=== PATIENT | male | born 1975 ===

== ENCOUNTER 2018-08-31 11:54 | Emergency (ER) | payer SELFPAY ==
[2018-08-31] MEDS ORDERED: TETANUS & DIPHTHERIA TOX,ADULT 0.5 ML VIAL ONE (12:57)
[2018-08-31] MEDS ORDERED: LIDOCAINE 1% MPF 5 ML VIAL ONE (12:57)
--- NOTE | 2018-08-31 14:11 | RAD REPORT ---
EXAM DESCRIPTION: RAD - Hand Left 3 View - 08/31/2018 1:47 pm CLINICAL HISTORY: Hand pain, laceration COMPARISON: None. FINDINGS: No fracture, dislocation or periosteal reaction noted. No foreign body or other soft tissu e abnormality. IMPRESSION: Negative left hand examination.
--- NOTE | 2018-08-31 14:31 | ER ---
Nurse's Notes [facility] Name: Eliceo Champion Age: 42 yrs Sex: Male : 1975 Arrival Date: 08/31/2018 Time: 11:58 Bed 11 Private MD: Diagnosis: Laceration without foreign body of left hand Presentation: 08/31 12:01 Presenting complaint: Patient states: left hand laceration after trying to open a sv canned good. Transition of care: patient was not received from another setting of care. Complicating Factors: There are no complicating factors for this patient. Onset of symptoms was August 31, 2018. Care prior to arrival: None. 12:01 Method Of Arrival: Ambulatory sv 12:01 Acuity: ANKITA 3 sv 14:48 Risk Assessment: Do you want to hurt yourself or someone else? Patient reports no ss desire to harm self or others. Initial Sepsis Screen: Does the patient meet any 2 criteria? No. Patient's initial sepsis screen is negative. Does the patient have a suspected source of infection? No. Patient's initial sepsis screen is negative. Triage Assessment: 12:04 General: Appears in no apparent distress. comfortable, well developed, Behavior is sv calm, cooperative, appropriate for age. Pain: Complains of pain in left hand Pain currently is 7 out of 10 on a pain scale. Pain began 30 min ago. Neuro: Level of Consciousness is awake, alert, obeys commands, Oriented to person, place, time, situation, Moves all extremities. Full function Gait is steady, Speech is normal. Respiratory: Respiratory effort is even, unlabored, Respiratory pattern is regular, symmetrical. Injury Description: Laceration sustained to inner aspect of left palm is contaminated, 2.6 to 7.5 cm long, not bleeding, was sustained 30-60 minutes ago. is bleeding a small amount. Historical: - Allergies: 12:03 PENICILLINS; sv 12:03 Iodine; sv 12:03 Sulfa (Sulfonamide Antibiotics); sv 12:03 Latex, Natural Rubber; sv 12:03 Bleach (Sodium Hypochlorite); sv 12:03 Codeine; sv - PSHx: 12:03 Knee surgery; hips; Ear Tubes; sv - Immunization history:: Adult Immunizations up to date. - Social history:: Smoking status: Patient/guardian denies using tobacco. - Ebola Screening: : Patient denies exposure to infectious person Patient denies travel to an Ebola-affected area in the 21 days before illness onset. Screenin:59 Abuse screen: Denies threats or abuse. Denies injuries from another. Nutritional ss screening: No deficits noted. Tuberculosis screening: Never had TB. Fall Risk None identified. Assessment: 12:16 General: Appears in no apparent distress. comfortable, Behavior is cooperative, Denies ss fever, feeling ill, fatigue, chills. Pain: Complains of pain in inner aspect of left palm Pain currently is 7 out of 10 on a pain scale. Quality of pain is described as burning, tender, Is continuous. Neuro: Level of Consciousness is awake, alert, obeys commands, Oriented to person, place, time, situation. Cardiovascular: Pulses are palpable in right radial artery and left radial artery. Respiratory: Airway is patent Respiratory effort is even, unlabored, Respiratory pattern is regular, symmetrical. EENT: Nares are clear Oral mucosa is moist. Derm: Skin is intact, is healthy with good turgor, Skin is dry, Skin is pink, warm \T\ dry. normal. Musculoskeletal: Circulation, motion, and sensation intact. Range of motion: intact in all extremities, Swelling absent. 12:59 Reassessment: Patient appears in no apparent distress at this time. Patient and/or ss family updated on plan of care and expected duration. Pain level reassessed. Patient is alert, oriented x 3, equal unlabored respirations, skin warm/dry/pink. awaiting XRAY. Vital Signs: 12:03 BP 140 / 95; Pulse 98; Resp 18; Temp 98.5; Pulse Ox 98% ; Weight 81.65 kg; Height 5 ft. sv 4 in. (162.56 cm); Pain 7/10; 12:03 Body Mass Index 30.90 (81.65 kg, 162.56 cm) sv ED Course: 11:58 Patient arrived in ED. tw3 12:01 Triage completed. sv 12:01 Bandage applied. sv 12:04 Arm band placed on. sv 12:19 Eliceo Piedra NP is PHCP. pm1 12:19 Jeremias Interiano MD is Attending Physician. pm1 12:44 Maria Esther Canales RN is Primary Nurse. ss 12:59 Patient has correct armband on for positive identification. Bed in low position. Call light in reach. 13:30 X-ray completed. Portable x-ray completed in exam room. Patient tolerated procedure jb2 well. 13:48 Hand Left 3 View XRAY In Process Unspecified. EDMS 14:46 Patient did not have IV access during this emergency room visit. ss 14:46 Assist provider with laceration repair on left hand that was between 2.6 to 7.5 cm ss using sutures. Set up tray. Performed by Eliceo Piedra ENGINEERING LEADER Dressed with Neosporin, Patient tolerated well. Administered Medications: 12:56 Drug: Tetanus-Diphtheria Toxoid Adult 0.5 ml {[employer]s Survey Worker: [employer]. Exp: ss 07/21/2020. Lot #: [id number]. } Route: IM; Site: right deltoid; 14:46 Follow up: Response: No adverse reaction ss 14:22 Drug: Lidocaine (1 %) 5 ml Volume: 5 ml; Route: Infiltration; Outcome: 14:30 Discharge ordered by MD. pm1 14:48 Discharged to home ambulatory. ss 14:48 Condition: good 14:48 Discharge instructions given to patient, Instructed on discharge instructions, follow up and referral plans. medication usage, Demonstrated understanding of instructions, follow-up care, medications, wound care, Prescriptions given X 1. 14:52 Patient left the ED. Signatures: Dispatcher [employer] Fabienne Ulloa, RN Jimmie Hill2 Maria Esther Canales RN RN ss Marinas, Patrick, NP ENGINEERING LEADER pm1 Anju Tripp tw3 Corrections: (The following items were deleted from the chart) 14:47 14:46 No provider procedures requiring assistance completed. ss ss
--- NOTE | 2018-08-31 14:31 | EDPHYS ---
Physician Documentation [facility] Name: Eliceo Champion Age: 42 yrs Sex: Male : 1975 Arrival Date: 08/31/2018 Time: 11:58 Bed 11 Private MD: ED Physician Jeremias Interiano HPI: 08/31 13:00 This 42 yrs old Male presents to ER via Ambulatory with complaints of Laceration To pm1 Hand. 13:00 The patient has a laceration related to: cooking, occurred at work, and there are no pm1 complicating factors. The injury was accidental. The laceration(s) is(are) located on the inner aspect of left palm. Onset: The symptoms/episode began/occurred just prior to arrival. Associated signs and symptoms: Pertinent negatives: deformity, dizziness, heavy bleeding, numbness distal to injury, suspected foreign body. The patient has not experienced similar symptoms in the past. The patient has not recently seen a physician. Patient was opening a can of beans at work and then accidentally cut his left hand on the lid that he was opening. Historical: - Allergies: 12:03 PENICILLINS; sv 12:03 Iodine; sv 12:03 Sulfa (Sulfonamide Antibiotics); sv 12:03 Latex, Natural Rubber; sv 12:03 Bleach (Sodium Hypochlorite); sv 12:03 Codeine; sv - PSHx: 12:03 Knee surgery; hips; Ear Tubes; sv - Immunization history:: Adult Immunizations up to date. - Social history:: Smoking status: Patient/guardian denies using tobacco. - Ebola Screening: : Patient denies exposure to infectious person Patient denies travel to an Ebola-affected area in the 21 days before illness onset. ROS: 13:00 Constitutional: Negative for fever, chills, and weight loss, Eyes: Negative for injury, pm1 pain, redness, and discharge, ENT: Negative for injury, pain, and discharge, Neck: Negative for injury, pain, and swelling, Cardiovascular: Negative for chest pain, palpitations, and edema, Respiratory: Negative for shortness of breath, cough, wheezing, and pleuritic chest pain, Abdomen/GI: Negative for abdominal pain, nausea, vomiting, diarrhea, and constipation, Back: Negative for injury and pain, : Negative for injury, bleeding, discharge, and swelling. 13:00 Skin: Negative for injury, rash, and discoloration, Neuro: Negative for headache, weakness, numbness, tingling, and seizure. 13:00 MS/extremity: Positive for laceration, of the inner aspect of left palm, Negative for decreased range of motion, deformity, paresthesias, swelling. Exam: 13:00 Constitutional: This is a well developed, well nourished patient who is awake, alert, pm1 and in no acute distress. Head/Face: Normocephalic, atraumatic. Eyes: Pupils equal round and reactive to light, extra-ocular motions intact. Lids and lashes normal. Conjunctiva and sclera are non-icteric and not injected. Cornea within normal limits. Periorbital areas with no swelling, redness, or edema. ENT: Nares patent. No nasal discharge, no septal abnormalities noted. Tympanic membranes are normal and external auditory canals are clear. Oropharynx with no redness, swelling, or masses, exudates, or evidence of obstruction, uvula midline. Mucous membranes moist. Neck: Trachea midline, no thyromegaly or masses palpated, and no cervical lymphadenopathy. Supple, full range of motion without nuchal rigidity, or vertebral point tenderness. No Meningismus. Chest/axilla: Normal chest wall appearance and motion. Nontender with no deformity. No lesions are appreciated. Cardiovascular: Regular rate and rhythm with a normal S1 and S2. No gallops, murmurs, or rubs. Normal PMI, no JVD. No pulse deficits. Respiratory: Lungs have equal breath sounds bilaterally, clear to auscultation and percussion. No rales, rhonchi or wheezes noted. No increased work of breathing, no retractions or nasal flaring. Back: No spinal tenderness. No costovertebral tenderness. Full range of motion. 13:00 MS/ Extremity: Pulses equal, no cyanosis. Neurovascular intact. Full, normal range of motion. 13:00 Skin: Appearance: normal except for affected area, injury, laceration(s), the wound is approximately 3 cm(s), with a depth of 1 cm(s), of the inner aspect of left palm. 13:00 Neuro: Orientation: is normal, Sensation: is normal, no obvious gross deficits, Gait: is steady, at a normal pace, without difficulty. Vital Signs: 12:03 BP 140 / 95; Pulse 98; Resp 18; Temp 98.5; Pulse Ox 98% ; Weight 81.65 kg; Height 5 ft. sv 4 in. (162.56 cm); Pain 7/10; 12:03 Body Mass Index 30.90 (81.65 kg, 162.56 cm) sv Laceration: 14:27 Wound Repair of 3cm ( 1.2in ) subcutaneous laceration to inner aspect of left palm. pm1 Linear shaped.. Distal neuro/vascular/tendon intact. Anesthesia: Local anesthetic administered with 3 mls of 1% lidocaine. Wound prep: Extensive cleansing with hibiclenz by me, Wound irrigation with saline by me, Wound explored extensively, Copious irrigation. Skin closed with 5 1-0 Prolene using simple sutures and sterile technique. Dressed with Neosporin, 4x4's. Patient tolerated well. MDM: 12:19 Patient medically screened. pm1 14:27 Data reviewed: vital signs. Data interpreted: Pulse oximetry: on room air is 98 %. pm1 Interpretation: normal. Counseling: I had a detailed discussion with the patient and/or guardian regarding: the historical points, exam findings, and any diagnostic results supporting the discharge/admit diagnosis, radiology results, the need for outpatient follow up, suture removal in 10-14 days, to return to the emergency department if symptoms worsen or persist or if there are any questions or concerns that arise at home. 08/31 12:24 Order name: Hand Left 3 View XRAY; Complete Time: 14:27 pm1 08/31 12:24 Order name: Prolene, Sutures; Complete Time: 12:44 pm1 08/31 12:24 Order name: Dressing - Wound; Complete Time: 12:44 pm1 08/31 12:24 Order name: Gloves, Sterile; Complete Time: 12:44 pm1 08/31 12:24 Order name: Setup Suture Tray; Complete Time: 12:44 pm1 Administered Medications: 12:56 Drug: Tetanus-Diphtheria Toxoid Adult 0.5 ml {Rides Attendant: [employer]. Exp: ss 07/21/2020. Lot #: [id number]. } Route: IM; Site: right deltoid; 14:46 Follow up: Response: No adverse reaction 14:22 Drug: Lidocaine (1 %) 5 ml Volume: 5 ml; Route: Infiltration; ss Disposition: 09/01 07:22 Co-signature as Attending Physician, Jeremias Interiano MD I agree with the assessment and wa plan of care. Disposition: 08/31/18 14:30 Discharged to Home. Impression: Laceration without foreign body of left hand. - Condition is Stable. - Discharge Instructions: Laceration Care, Adult. - Prescriptions for Tramadol 50 mg Oral Tablet - take 1 tablet by ORAL route every 8 hours as needed; 12 tablet. - Work release form, Medication Reconciliation Form, Thank You Letter, Antibiotic Education, Prescription Opioid Use form. - Follow up: Emergency Department; When: As needed; Reason: Worsening of condition. Follow up: Private Physician; When: 2 - 3 days; Reason: Wound Recheck, Recheck today's complaints, Continuance of care, Staple/Suture removal, Re-evaluation by your physician. - Problem is new. - Symptoms have improved. Signatures: Dispatcher [employer] EDIL Fabienne Larson RN RN Maria Esther Canales RN RN ss Eliceo Piedra, ROLL OFF DRIVER ROLL OFF DRIVER pm1 Jeremias Interiano MD MD ct Corrections: (The following items were deleted from the chart) 08/31 14:52 14:30 08/31/2018 14:30 Discharged to Home. Impression: Laceration without foreign body ss of left hand. Condition is Stable. Forms are Medication Reconciliation Form, Thank You Letter, Antibiotic Education, Prescription Opioid Use. Follow up: Emergency Department; When: As needed; Reason: Worsening of condition. Follow up: Private Physician; When: 2 - 3 days; Reason: Wound Recheck, Recheck today's complaints, Continuance of care, Staple/Suture removal, Re-evaluation by your physician. Problem is new. Symptoms have improved. pm1
== END 2018-08-31 14:52 | disposition home or self-care (01) ==
LOC: ER 11:54
PROC: 0JQK0ZZ Repair Left Hand Subcutaneous Tissue and Fascia, Open Approach (ICD-10-PCS; principal; 2018-08-31)
DX: S61.412A Laceration without foreign body of left hand, initial encounter (principal); W26.8XXA Contact with other sharp object(s), not elsewhere classified, initial encounter; Y93.G3 Activity, cooking and baking; Y92.89 Other specified places as the place of occurrence of the external cause; Y99.8 Other external cause status; Z23 Encounter for immunization; Z88.0 Allergy status to penicillin; Z88.2 Allergy status to sulfonamides; Z88.5 Allergy status to narcotic agent; Z91.040 Latex allergy status; Z91.048 Other nonmedicinal substance allergy status
CPT/HCPCS: 90714; 99284

== ENCOUNTER 2018-09-08 07:11 | Emergency (ER) | payer SELFPAY ==
--- NOTE | 2018-09-08 07:30 | ER ---
Nurse's Notes [facility] Name: Eliceo Champion Age: 43 yrs Sex: Male : 1975 Arrival Date: 09/08/2018 Time: 07:15 Bed 20 Private MD: None, None Diagnosis: Encounter for removal of sutures Presentation: 09/08 07:22 Presenting complaint: Patient states: here to have sutures removed that were placed 7 ss days ago. Transition of care: patient was not received from another setting of care. Onset of symptoms was August 2018. Risk Assessment: Do you want to hurt yourself or someone else? Patient reports no desire to harm self or others. Initial Sepsis Screen: Does the patient meet any 2 criteria? No. Patient's initial sepsis screen is negative. Does the patient have a suspected source of infection? No. Patient's initial sepsis screen is negative. Care prior to arrival: None. 07:22 Method Of Arrival: Ambulatory ss 07:22 Acuity: ANKITA 5 ss Historical: - Allergies: 07:23 Bleach (Sodium Hypochlorite); ss 07:23 Codeine; ss 07:23 Iodine; ss 07:23 Latex, Natural Rubber; ss 07:23 PENICILLINS; ss 07:23 Sulfa (Sulfonamide Antibiotics); ss - PSHx: 07:23 Knee surgery; hips; Ear Tubes; ss - Immunization history:: Adult Immunizations up to date. - Social history:: Smoking status: Patient/guardian denies using tobacco. - Ebola Screening: : Patient denies exposure to infectious person Patient denies travel to an Ebola-affected area in the 21 days before illness onset. Screenin:23 Abuse screen: Denies threats or abuse. Denies injuries from another. Nutritional bp screening: No deficits noted. Tuberculosis screening: No symptoms or risk factors identified. Fall Risk None identified. Assessment: 07:22 General: Appears in no apparent distress. comfortable, Behavior is calm, cooperative, bp appropriate for age. Pain: Denies pain. Neuro: Level of Consciousness is awake, alert, obeys commands, Oriented to person, place, time, situation, Appropriate for age. Cardiovascular: No deficits noted. Respiratory: Airway is patent Respiratory effort is even, unlabored, Respiratory pattern is regular, symmetrical. GI: No signs and/or symptoms were reported involving the gastrointestinal system. : No signs and/or symptoms were reported regarding the genitourinary system. EENT: No deficits noted. Derm: No deficits noted. Musculoskeletal: Circulation, motion, and sensation intact. Range of motion: intact in all extremities. Vital Signs: 07:21 BP 131 / 80; Pulse 92; Resp 16; Temp 98.2(TE); Pulse Ox 98% on R/A; Weight 77.11 kg; ss Height 5 ft. 4 in. (162.56 cm); Pain 0/10; 07:21 Body Mass Index 29.18 (77.11 kg, 162.56 cm) ED Course: 07:15 Patient arrived in ED. mr 07:15 None, None is Private Physician. mr 07:19 Tim Montilla, RN is Primary Nurse. bp 07:21 Arm band placed on right wrist. ss 07:23 Triage completed. ss 07:23 Patient has correct armband on for positive identification. Bed in low position. Call bp light in reach. Side rails up X2. 07:25 Everardo Irving PA is PHCP. jr8 07:25 Lino Cisneros MD is Attending Physician. jr8 07:37 No provider procedures requiring assistance completed. Patient did not have IV access ss during this emergency room visit. Administered Medications: No medications were administered Outcome: 07:29 Discharge ordered by . jr8 07:37 Discharged to home ambulatory. ss 07:37 Condition: good 07:37 Discharge instructions given to patient, family, Instructed on discharge instructions, follow up and referral plans. medication usage, Demonstrated understanding of instructions, follow-up care, medications. 07:38 Patient left the ED. Signatures: Melany Mora Shelby, RN RN Everardo Irving PA PA jr8 Tim Montilla, RN RN bp
--- NOTE | 2018-09-08 07:30 | EDPHYS ---
Physician Documentation [facility] Name: Eliceo Champion Age: 43 yrs Sex: Male : 1975 Arrival Date: 09/08/2018 Time: 07:15 Bed 20 Private MD: None, None ED Physician Lino Cisneros HPI: 09/08 07:25 This 43 yrs old Male presents to ER via Ambulatory with complaints of Suture Removal. jr8 07:25 The patient has sutures on the left hand. Previous treatment: The patient was initially jr8 treated 7 day(s) ago. Sutures/gisela progress: The patient has no c/o's. The wound is well-healing with no redness, swelling, discharge, or dehiscence reported. The patient has not experienced similar symptoms in the past. The patient has not recently seen a physician. lacerated hand on left side last week. Had sutures completed here. Back to have them removed . Historical: - Allergies: 07:23 Bleach (Sodium Hypochlorite); ss 07:23 Codeine; ss 07:23 Iodine; ss 07:23 Latex, Natural Rubber; ss 07:23 PENICILLINS; ss 07:23 Sulfa (Sulfonamide Antibiotics); ss - PSHx: 07:23 Knee surgery; hips; Ear Tubes; ss - Immunization history:: Adult Immunizations up to date. - Social history:: Smoking status: Patient/guardian denies using tobacco. - Ebola Screening: : Patient denies exposure to infectious person Patient denies travel to an Ebola-affected area in the 21 days before illness onset. ROS: 07:25 Constitutional: Negative for fever, chills, and weight loss. jr8 07:25 All other systems are negative. Exam: 07:25 Cardiovascular: Regular rate and rhythm with a normal S1 and S2. No gallops, murmurs, jr8 or rubs. Normal PMI, no JVD. No pulse deficits. Respiratory: Lungs have equal breath sounds bilaterally, clear to auscultation and percussion. No rales, rhonchi or wheezes noted. No increased work of breathing, no retractions or nasal flaring. Neuro: Awake and alert, GCS 15, oriented to person, place, time, and situation. Cranial nerves II-XII grossly intact. Motor strength 5/5 in all extremities. Sensory grossly intact. Cerebellar exam normal. Normal gait. 07:25 MS/ Extremity: Pulses equal, no cyanosis. Neurovascular intact. Full, normal range of motion. 07:25 Skin: Wound recheck: Suture laceration closure: the wound is healing well, mild dehiscence. Vital Signs: 07:21 BP 131 / 80; Pulse 92; Resp 16; Temp 98.2(TE); Pulse Ox 98% on R/A; Weight 77.11 kg; ss Height 5 ft. 4 in. (162.56 cm); Pain 0/10; 07:21 Body Mass Index 29.18 (77.11 kg, 162.56 cm) ss Procedures: 07:25 Suture/Staple removal: Removed 5 sutures, from left hand, site appears well healed, jr8 dressed with gauze bandage, Neosporin, Patient tolerated well. MDM: 07:25 Patient medically screened. jr8 07:25 Data reviewed: vital signs, nurses notes, and as a result, I will discharge patient. jr8 Data interpreted: Pulse oximetry: on room air is 98 %. Interpretation: normal. Counseling: I had a detailed discussion with the patient and/or guardian regarding: the historical points, exam findings, and any diagnostic results supporting the discharge/admit diagnosis, the need for outpatient follow up, a family practitioner, to return to the emergency department if symptoms worsen or persist or if there are any questions or concerns that arise at home. ED course: cautioned patient to be extra careful with that area for next week. Laceration was in crease of hand and has mild dehiscence of wound. Will have to secondarily heal from this point on but no infection noted and looks well otherwise . Administered Medications: No medications were administered Disposition: 08:21 Co-signature as Attending Physician, Lino Cisneros MD. rn Disposition: 09/08/18 07:29 Discharged to Home. Impression: Encounter for removal of sutures. - Condition is Stable. - Discharge Instructions: Suture Removal, Care After. - Medication Reconciliation Form, Thank You Letter, Antibiotic Education, Prescription Opioid Use form. - Follow up: Private Physician; When: As needed; Reason: Wound Recheck, Recheck today's complaints, Continuance of care, Re-evaluation by your physician. - Problem is new. - Symptoms have improved. Signatures: Cisneros, LinoMD MD fiona Shelby, RN RN ss Roszak, Josh, PA PA jr8 Corrections: (The following items were deleted from the chart) 07:38 07:29 09/08/2018 07:29 Discharged to Home. Impression: Encounter for removal of ss sutures. Condition is Stable. Forms are Medication Reconciliation Form, Thank You Letter, Antibiotic Education, Prescription Opioid Use. Follow up: Private Physician; When: As needed; Reason: Wound Recheck, Recheck today's complaints, Continuance of care, Re-evaluation by your physician. Problem is new. Symptoms have improved. jr8
== END 2018-09-08 07:38 | disposition home or self-care (01) ==
LOC: ER 07:11
DX: Z48.02 Encounter for removal of sutures (principal); Z88.0 Allergy status to penicillin; Z88.2 Allergy status to sulfonamides; Z88.5 Allergy status to narcotic agent; Z91.040 Latex allergy status; Z91.048 Other nonmedicinal substance allergy status
CPT/HCPCS: 99281

== ENCOUNTER 2018-10-07 08:35 | Emergency (ER) | payer SELFPAY ==
--- NOTE | 2018-10-07 08:57 | ER ---
Nurse's Notes [facility] Name: Eliceo Champion Age: 43 yrs Sex: Male : 1975 Arrival Date: 10/07/2018 Time: 08:37 Bed 20 Private MD: Diagnosis: Unspecified otitis externa, left ear;Other marginal perforations of tympanic membrane, left ear Presentation: 10/07 08:48 Presenting complaint: Left ear pain and drainage from ear since 0300 today. Transition hb of care: patient was not received from another setting of care. Onset of symptoms was October 07, 2018. Risk Assessment: Do you want to hurt yourself or someone else? Patient reports no desire to harm self or others. Initial Sepsis Screen: Does the patient meet any 2 criteria? No. Patient's initial sepsis screen is negative. Does the patient have a suspected source of infection? No. Patient's initial sepsis screen is negative. Care prior to arrival: Medication(s) given: naproxen at 0430. 08:48 Method Of Arrival: Ambulatory hb 08:48 Acuity: ANKITA 4 hb Triage Assessment: 08:48 General: Appears in no apparent distress. Behavior is calm, cooperative. Pain: Pain hb currently is 9 out of 10 on a pain scale. EENT: Ear canal w/ drainage noted from left ear. Neuro: Level of Consciousness is awake, alert, obeys commands, Oriented to person, place, time, situation. Cardiovascular: Capillary refill < 3 seconds Patient's skin is warm and dry. Respiratory: Airway is patent Respiratory effort is even, unlabored, Respiratory pattern is regular, symmetrical. GI: No signs and/or symptoms were reported involving the gastrointestinal system. : No signs and/or symptoms were reported regarding the genitourinary system. Derm: Skin is intact, is healthy with good turgor. Musculoskeletal: No signs and/or symptoms reported regarding the musculoskeletal system. Historical: - Allergies: 08:51 Bleach (Sodium Hypochlorite); hb 08:51 Codeine; hb 08:51 Iodine; hb 08:51 Latex, Natural Rubber; hb 08:51 PENICILLINS; hb 08:51 Sulfa (Sulfonamide Antibiotics); hb - PSHx: 08:51 Knee surgery; hips; Ear Tubes; hb - Immunization history:: Adult Immunizations up to date. - Social history:: Smoking status: Patient uses tobacco products, smokes one-half pack cigarettes per day. - Ebola Screening: : No symptoms or risks identified at this time. - Family history:: not pertinent. - Hospitalizations: : No recent hospitalization is reported. Screenin:54 Abuse screen: Denies threats or abuse. Denies injuries from another. Nutritional hb screening: No deficits noted. Tuberculosis screening: No symptoms or risk factors identified. Fall Risk None identified. Assessment: 09:02 General: see triage assessment. hb Vital Signs: 08:48 BP 123 / 85; Pulse 88; Resp 16; Temp 98; Pulse Ox 100% ; Weight 81.65 kg; Height 5 ft. hb 4 in. (162.56 cm); Pain 9/10; 08:48 Body Mass Index 30.90 (81.65 kg, 162.56 cm) hb ED Course: 08:37 Patient arrived in ED. as 08:45 Lino Cisneros MD is Attending Physician. rn 08:49 Triage completed. hb 08:54 Arm band placed on. hb 08:55 Fabienne Regan MD is Referral Physician. rn 08:56 Patient has correct armband on for positive identification. Bed in low position. Call hb light in reach. 09:02 No provider procedures requiring assistance completed. Patient did not have IV access hb during this emergency room visit. Administered Medications: No medications were administered Outcome: 08:56 Discharge ordered by . rn 09:02 Discharged to home ambulatory. hb 09:02 Condition: stable 09:02 Discharge instructions given to patient, Instructed on discharge instructions, follow up and referral plans. medication usage, Demonstrated understanding of instructions, follow-up care, medications, Prescriptions given X 2. 09:03 Patient left the ED. hb Signatures: Leslie Hoskins Roman, MD MD rn Baxter, Heather, RN RN hb
--- NOTE | 2018-10-07 08:57 | EDPHYS ---
Physician Documentation [facility] Name: Eliceo Champion Age: 43 yrs Sex: Male : 1975 Arrival Date: 10/07/2018 Time: 08:37 Bed 20 Private MD: ED Physician Lino Cisneros HPI: 10/07 08:53 This 43 yrs old Male presents to ER via Ambulatory with complaints of Ear rn Pain. 08:53 The patient presents with an injury, pain. The complaints affect the left ear. Onset: rn The symptoms/episode began/occurred yesterday. Modifying factors: The symptoms are alleviated by covering ear, the symptoms are aggravated by pulling on ears. Severity of symptoms: At their worst the symptoms were mild in the emergency department the symptoms are unchanged. The patient has not experienced similar symptoms in the past. The patient has not recently seen a physician. Denies trauma or injury.. Historical: - Allergies: 08:51 Bleach (Sodium Hypochlorite); hb 08:51 Codeine; hb 08:51 Iodine; hb 08:51 Latex, Natural Rubber; hb 08:51 PENICILLINS; hb 08:51 Sulfa (Sulfonamide Antibiotics); hb - PSHx: 08:51 Knee surgery; hips; Ear Tubes; hb - Immunization history:: Adult Immunizations up to date. - Social history:: Smoking status: Patient uses tobacco products, smokes one-half pack cigarettes per day. - Ebola Screening: : No symptoms or risks identified at this time. - Family history:: not pertinent. - Hospitalizations: : No recent hospitalization is reported. ROS: 08:53 Constitutional: Negative for fever, chills, and weight loss, ENT: + left ear pain and rn drainage Neuro: Negative for headache, weakness, numbness, tingling, and seizure. Exam: 08:53 Constitutional: This is a well developed, well nourished patient who is awake, alert, rn and in no acute distress. Head/Face: Normocephalic, atraumatic. Eyes: Pupils equal round and reactive to light, extra-ocular motions intact. Lids and lashes normal. Conjunctiva and sclera are non-icteric and not injected. Cornea within normal limits. Periorbital areas with no swelling, redness, or edema. ENT: + left TM with mild erythema, + bubbles at base, possible perforation, + pain with manipulation of ear Neuro: Awake and alert, GCS 15, oriented to person, place, time, and situation. Cranial nerves II-XII grossly intact. Motor strength 5/5 in all extremities. Sensory grossly intact. Cerebellar exam normal. Normal gait. Vital Signs: 08:48 BP 123 / 85; Pulse 88; Resp 16; Temp 98; Pulse Ox 100% ; Weight 81.65 kg; Height 5 ft. hb 4 in. (162.56 cm); Pain 9/10; 08:48 Body Mass Index 30.90 (81.65 kg, 162.56 cm) hb MDM: 08:45 Patient medically screened. rn 08:53 Differential diagnosis: otitis media, otitis externa, ruptured TM. Data reviewed: vital rn signs, nurses notes, and as a result, I will discharge patient. Counseling: I had a detailed discussion with the patient and/or guardian regarding: the historical points, exam findings, and any diagnostic results supporting the discharge/admit diagnosis, the need for outpatient follow up, to return to the emergency department if symptoms worsen or persist or if there are any questions or concerns that arise at home. Special discussion: I discussed with the patient/guardian in detail that at this point there is no indication for admission to the hospital. It is understood, however, that if the symptoms persist or worsen the patient needs to return immediately for re-evaluation. Administered Medications: No medications were administered Disposition: 10/07/18 08:56 Discharged to Home. Impression: Unspecified otitis externa, left ear, Other marginal perforations of tympanic membrane, left ear. - Condition is Stable. - Discharge Instructions: Eardrum Rupture, Adult, Otitis Externa. - Prescriptions for Cortisporin- TC 3.3-3-10-0.5 mg/mL Otic Suspension - instill 4 drop by OTIC route every 6 hours; 1 bottle. Cipro 500 mg Oral Tablet - take 1 tablet by ORAL route every 12 hours for 7 days; 14 tablet. - Medication Reconciliation Form, Thank You Letter, Antibiotic Education, Prescription Opioid Use, Work release form form. - Follow up: Fabienne Regan MD; When: As needed; Reason: Recheck today's complaints, Re-evaluation by your physician. - Problem is new. - Symptoms are unchanged. Signatures: Lino Cisneros MD MD rn Baxter, Heather, RN RN Corrections: (The following items were deleted from the chart) 09:03 08:56 10/07/2018 08:56 Discharged to Home. Impression: Unspecified otitis externa, left hb ear; Other marginal perforations of tympanic membrane, left ear. Condition is Stable. Forms are Medication Reconciliation Form, Thank You Letter, Antibiotic Education, Prescription Opioid Use. Follow up: Fabienne Regan; When: As needed; Reason: Recheck today's complaints, Re-evaluation by your physician. Problem is new. Symptoms are unchanged. rn
== END 2018-10-07 09:03 | disposition home or self-care (01) ==
LOC: ER 08:35
DX: H60.92 Unspecified otitis externa, left ear (principal); H72.2X2 Other marginal perforations of tympanic membrane, left ear; Z91.040 Latex allergy status; Z88.5 Allergy status to narcotic agent; Z88.0 Allergy status to penicillin; Z88.2 Allergy status to sulfonamides; Z91.048 Other nonmedicinal substance allergy status; F17.210 Nicotine dependence, cigarettes, uncomplicated
CPT/HCPCS: 99282